=== PATIENT | male | born 1955 | race Caucasian/White ===

== ENCOUNTER 2016-09-16 18:58 | Emergency (ER) | payer MEDICAID ==
--- NOTE | 2016-09-16 18:54 | EDPHY ---
Medical Decision Making ED Course/Re-evaluation: CHIEF COMPLAINT: Alcohol intoxication. HISTORY OF PRESENT ILLNESS: The patient is a chronic alcoholic living on the [address]. Patient drinks on a daily basis and obtains whatever alcohol is available. Patient was found by bystanders who called EMS system. Patient has had multiple ER visits over the last several years for the same complaint. Patient denies any injuries denies loss of consciousness denies any recent trauma. Patient denies co-ingestion. Patient denies suicidal or homicidal behavior. REVIEW OF SYSTEMS: A 10 point review of systems was performed and is negative with the exception of the elements mentioned in the history of present illness. PHYSICAL EXAM: General Appearance: Alert, well hydrated, appropriate, and non-toxic appearing. Head: Atraumatic without scalp tenderness or obvious injury Eyes: Pupils equal, round, reactive to light and accommodation, EOMI, no trauma , no injection. Ears: Clear bilaterally, no perforation, normal landmarks Nose: Atraumatic, no rhinorrhea, clear. Throat: There is no erythema or exudates, no lesions, normal tonsils, mucus membranes moist. Neck: Supple, 2+ carotid upstroke, nontender, no lymphadenopathy. Respiratory: No retractions, no distress, no wheezes, and no accessory muscle use. Lungs are clear to auscultation bilaterally. Cardiovascular: Regular rate and rhythm, no murmurs, rubs, or gallops. Bilateral carotid, radial, dorsalis pedis, and posterior tibial pulses intact. Good capillary refill all extremities. Gastrointestinal: Abdomen is soft, nontender, non-distended, no masses, no rebound, no guarding, no peritoneal signs. Musculoskeletal: Normal active ROM of all extremities, atraumatic. Neurological: Alert, appropriate, and interactive. The patient has normal DTRs and non-focal cranial nerves, motor, sensory, and cerebellar exam. Skin: No rashes, good turgor, no nodules on palpation. SOCIAL HISTORY: Alcohol abuse. DIAGNOSTICS/PROCEDURES/CRITICAL CARE TIME: MEDICAL DECISION MAKING: I serially examined this patient since the patient's arrival here in the emergency department. The patient continues to become more and more sober with each examination. I serially questioned the patient and the patient's story given initially has not changed. The patient still denies any trauma, any head injury, and any illicit drug use. At this point, the patient is walking the department freely and is clinically sober. We're discharging the patient to the [facility] in stable condition. Departure - Departure Disposition: Home, Routine, Self-Care Clinical Impression: Alcohol abuse Condition: Good Instructions: Alcohol Intoxication (ED), Abuse of Alcohol (ED) Additional Instructions: Return for any serious worsening of condition. Referrals: [facility] 24 Hours [Outside] - As per Instructions
[2016-09-16 19:06] VITALS: RESP 16
[2016-09-16 19:59] VITALS: BP 124/62; PULSE 78; TEMP 99; O2SAT 94
== END 2016-09-16 20:06 | disposition home or self-care (01) ==
LOC: EDUNIT#
DX: F10.10 Alcohol abuse, uncomplicated (principal)

== ENCOUNTER 2016-09-17 20:18 | Emergency (ER) | payer MEDICAID ==
[2016-09-17] MEDS ORDERED: 1/2 NS 1,000 ML IV SCH (20:30)
[2016-09-17 20:31] LABS: % IMMATURE GRANULYOCYTES 0.3 % (0.0-1.1); ABSOLUTE IMMATURE GRANULOCYTES 0.04 10^3/uL (0.00-0.10); ADD DIFF? NO; ADD MORPH? NO; ADD SCAN? NO; ATYPICAL LYMPHOCYTE FLAG 20 (0-99); FRAGMENT RBC FLAG 0 (0-99); HEMATOCRIT 41.1 % (40.0-51.0); HEMOGLOBIN 13.7 g/dL (13.7-17.5); LEFT SHIFT FLG 0 (0-99); LIPEMIA HEMOLYSIS FLAG 80 (0-99); MEAN CELL HEMOGLOBIN 32.7 pg (27.9-34.1); MEAN CELL HEMOGLOBIN CONCENTR. 33.3 g/dL (32.4-36.7); MEAN CELL VOLUME 98.1 fL (81.5-99.8); MEAN PLATELET VOLUME 9.1 fL (8.7-11.7); PLATELET CLUMPS FLAG 10 (0-99); PLATELET COUNT 313 10^3/uL (150-400); RED BLOOD CELL COUNT 4.19 10^6/uL (4.40-6.38); RED CELL DISTRIBUTION WIDTH 16.6 % (11.5-15.2)
[2016-09-17 20:41] LABS: ANION GAP 20 mEq/L (8-16); CALCIUM 9.4 mg/dL (8.5-10.4); CARBON DIOXIDE 22 mEq/l (22-31); CHLORIDE 107 mEq/L (97-110); CREATININE 0.6 mg/dL (0.7-1.3); GLOMERULAR FILTRATION RATE > 60; GLUCOSE 76 mg/dL (70-100); POTASSIUM 4.6 mEq/L (3.5-5.2); SODIUM 149 mEq/L (134-144)
[2016-09-17] MEDS ORDERED: D5W 1/2 NS 1,000 ML IV SCH (20:45)
--- NOTE | 2016-09-17 22:40 | EDPHY ---
H & P Time Seen by Provider: 09/17/16 20:24 HPI/ROS: This patient is brought in by EMS for hypoglycemia intoxication. He has some by please behind a local muslim on the ground initially poorly responsive to verbal commands. His glucose prior to arrival was in the 40s and he was given oral glucose with a recheck of 76 prior to arrival. The patient is here with long history of alcohol abuse admits alcohol today. He have a minor fall and he does not recall the timing on this but he has a resultant abrasion to his nose and to his left knee both mild. He has no other complaints. ROS: No fevers. He denies any headache. No neck or back pain. No chest or belly pain. No recent vomiting. No bony pain in his knee. He does report left foot pain for the past 3 days. He does not recall if he injured it in a fall or earlier time points to the lateral foot as the source of the pain. 10 point ROS is limited due to intoxication but otherwise negative. Past Medical/Surgical History: Alcohol abuse Left hip fracture with surgery. He walks with a cane at baseline due to this He was admitted to the [facility] from [facility] yesterday. Social History: He drinks alcohol daily. He denies any coingestion. No drug use. Smoking Status: Current every day smoker Physical Exam: General Appearance: Alert, no distress. Eyes: Pupils equal and round no pallor or injection. ENT, Mouth: Mucous membranes moist. Atraumatic except for superficial abrasion to the tip of his nose without bony tenderness or deformity. Nares are clear bilaterally. Ears: Clear with no hemotympanum. Oropharynx no dental trauma or intraoral lacerations. Neck nontender Back nontender Respiratory: There are no retractions, lungs are clear to auscultation. Cardiovascular: Regular rate and rhythm. Gastrointestinal: Abdomen is soft and nontender, no masses, bowel sounds normal. Neurological: Patient has slurred speech consistent with intoxication but is oriented to person and place. No focal deficits. Has full strength in all 4 extremities. Skin: Warm and dry, no rashes. Extremities are symmetrical, full range of motion and atraumatic except for left foot Left foot: There is ecchymosis and mild tenderness to the lateral midfoot extends to the proximal 5th metatarsal. Psychiatric: Patient is cooperative while here. DIFFERENTIAL DIAGNOSIS: After history and physical exam differential diagnosis was considered for alcohol intoxication, foot sprain versus contusion versus fracture, superficial abrasions, alcohol related hyperglycemia Constitutional: Initial Vital Signs Temperature (C) 35.7 C L 09/17/16 20:18 Heart Rate 102 H 09/17/16 20:18 Respiratory Rate 21 H 09/17/16 20:18 Blood Pressure 116/73 09/17/16 20:18 O2 Sat (%) 88 L 09/17/16 20:18 O2 Delivery Mode Room Air Allergies/Adverse Reactions: No Known Allergies Allergy (Verified 09/17/16 20:22) Home Medications: Medication Instructions Recorded NK [No Known Home Meds] 09/16/16 MDM/Departure - MDM Diagnostics: Recheck glucose on arrival here is 80 Patient blows a 0.327 breathalyzer upon arrival here. Imaging Results: Imaging Impressions Foot X-Ray 09/17/16 22:34 Impression: 1. Nondisplaced fractures distal shaft left second through fourth metatarsals. The foot x-ray: 2nd through 4th distal metatarsal fractures. I discussed this with the radiologist-Dr. Roman Imaging: Discussed imaging studies w/ call center consultant Radiologist ED Course/Re-evaluation: D5 half-normal saline at maintenance Patient is placed in a walker boot for foot fracture. His abrasions are cleaned. I counseled him regarding foot fracture. Discussion: I find no evidence of other significant trauma this patient who despite his alcohol level is quite conversant. He has no other physical complaints at this time. He does have a minor nasal abrasion but no evidence of bony injury or significant head injury. He warrants observation admission for ortho or podiatry consult in the morning/ immobilization and sufficient sobriety ambulate - Depart Disposition: [facility] Clinical Impression: Multiple abrasions Alcohol intoxication Qualifiers: Complication of substance-induced condition: uncomplicated Qualified Code(s): F10.120 - Alcohol abuse with intoxication, uncomplicated Multiple closed fractures of metatarsal bone Qualifiers: Encounter type: initial encounter Laterality: left Qualified Code(s): S92.302A - Fracture of unspecified metatarsal bone(s), left foot, initial encounter for closed fracture Clinical Impression: (Ruled Out): Metatarsal bone fracture Condition: Good Referrals: NONE *PRIMARY CARE P,. [Primary Care Provider] - As per Instructions
[2016-09-17 23:51] VITALS: TEMP 97.9; O2SAT 94
--- NOTE | 2016-09-18 00:49 | EDPHY ---
H & P Time Seen by Provider: 09/17/16 20:24 HPI/ROS: CHIEF COMPLAINT: Foot fracture, intoxication, hypoglycemia HISTORY OF PRESENT ILLNESS: Patient is a 60-year-old alcoholic homeless man who is sent from [facility] for admission. He has fractures of the 2nd 3rd and 4th metatarsal bones in the left foot. He also complains of right-sided rib pain. He states that he fell a couple of days ago and has had pain in the left foot and right ribs ever since. He does not remember what happened and is not sure how he broke his foot. Today he was found passed out on the sidewalk by police and taken to [facility] for intoxication. They also found a low blood glucose of 40. He was given oral glucose in the ambulance and then D5 in the urgent care. He is now alert and talkative. REVIEW OF SYSTEMS: Constitutional: denies: chills, fever, recent illness, recent injury EENTM: denies: blurred vision, double vision, nose congestion Respiratory: denies: cough, shortness of breath Cardiac: denies: chest pain, irregular heart rate, lightheadedness, palpitations Gastrointestinal/Abdominal: denies: abdominal pain, diarrhea, nausea, vomiting, blood streaked stools Genitourinary: denies: dysuria, frequency, hematuria, pain Musculoskeletal: See HPI Skin: denies: lesions, rash, jaundice, bruising Neurological: denies: headache, numbness, paresthesia, tingling, dizziness, weakness Hematologic/Lymphatic: denies: blood clots, easy bleeding, easy bruising Immunologic/allergic: denies: HIV/AIDS, transplant EXAM: GENERAL: Disheveled no acute distress. HEAD: Small abrasion to left forehead, normocephalic. EYES: Pupils equal round and reactive to light, extraocular movements intact, sclera anicteric, conjunctiva are normal. ENT: TMs normal, nares patent, oropharynx clear without exudates. Moist mucous membranes. NECK: Normal range of motion, supple without lymphadenopathy or JVD. LUNGS: Breath sounds clear to auscultation bilaterally and equal. No significant tenderness with palpation of ribs HEART: Regular rate and rhythm without murmurs, rubs or gallops. ABDOMEN: Soft, nontender, normoactive bowel sounds. No guarding, no rebound. No masses appreciated. BACK: No CVA tenderness, no spinal tenderness, step-offs or deformities EXTREMITIES: Left foot in Andre ring, NEUROLOGICAL: Cranial nerves II through XII grossly intact. Normal speech, normal gait. 5/5 strength, normal movement in all extremities, normal sensation PSYCH: Normal mood, normal affect. SKIN: Warm, dry, normal turgor, no visible rashes or lesions. Source: Patient, EMS, Old records Exam Limitations: No limitations - Personal History Current Tetanus/Diphtheria Vaccine: Unsure Current Tetanus Diphtheria and Acellular Pertussis (TDAP): Unsure - Medical/Surgical History Hx Asthma: No Hx Chronic Respiratory Disease: No Hx Diabetes: No Hx Cardiac Disease: No Hx Renal Disease: No Hx Cirrhosis: No Hx Alcoholism: Yes Hx HIV/AIDS: No Hx Splenectomy or Spleen Trauma: No Other PMH: ETOH - Family History Significant Family History: No pertinent family hx - Social History Smoking Status: Current every day smoker Alcohol Use: Sober Drug Use: None Constitutional: Initial Vital Signs Temperature (C) 35.7 C L 09/17/16 20:18 Heart Rate 102 H 09/17/16 20:18 Respiratory Rate 21 H 09/17/16 20:18 Blood Pressure 116/73 09/17/16 20:18 O2 Sat (%) 88 L 09/17/16 20:18 O2 Delivery Mode Room Air Allergies/Adverse Reactions: No Known Allergies Allergy (Verified 09/17/16 20:22) Home Medications: Medication Instructions Recorded NK [No Known Home Meds] 09/16/16 Medical Decision Making - Diagnostics Imaging Results: Imaging Impressions Foot X-Ray 09/17/16 22:34 Impression: 1. Nondisplaced fractures distal shaft left second through fourth metatarsals. X-ray: chest x-ray was obtained. I viewed the images myself on the PACS system. My interpretation of the images is: negative for acute diseaseMultiple old fractures . The radiologist interpretation is pending. Imaging: I viewed and interpreted images myself ED Course/Re-evaluation: The patient is no longer significantly intoxicated. The patient may not require admission however if he does it is more appropriate as a trauma admission. Consulted Dr. Alejo. Also I have ordered a chest x-ray. Will also allow him to eat to treat his hypoglycemia if his chest x-ray is unremarkable. 1:30 a.m. the patient is sober needing a sandwich. His blood sugars been stable. Dr. Alejo has consulted. There is no operative management of his fractures. He is comfortable in ambulating in the Andre boot. This injury is several days old and he has been walking on it with a cane. This point the patient is safe for discharge. This has been discussed with Dr. Esquivel who agrees. He does have a home and we will give him a ride there. Patient is happy with this plan and declines further observation or admission. We'll Have him follow up with Orthopedics. Differential Diagnosis: Partial list of the Differential diagnosis considered include but were not limited to; foot fracture, rib fracture, intoxication, hypoglycemia and although unlikely based on the history and physical exam, I also considered head injury, neck injury, infection. I discussed these differential diagnoses and the plan with the patient as well as the usual and expected course. The patient understands that the diagnosis is provisional and that in medicine we are not always correct and that further workup is often warranted. Usual and customary warnings were given. All of the patient's questions were answered. The patient was instructed to return to the emergency department should the symptoms at all worsen or return, otherwise to followup with the physician as we discussed. - Data Points Laboratory Results: Laboratory Results 09/17/16 20:26 09/17/16 20:26 09/18/16 09/17/16 09/17/16 01:27 20:26 20:26 WBC 12.17 10^3/uL H 10^3/uL (3.80-9.50) RBC 4.19 10^6/uL L 10^6/uL (4.40-6.38) Hgb 13.7 g/dL g/dL (13.7-17.5) Hct 41.1 % % (40.0-51.0) MCV 98.1 fL fL (81.5-99.8) MCH 32.7 pg pg (27.9-34.1) MCHC 33.3 g/dL g/dL (32.4-36.7) RDW 16.6 % H % (11.5-15.2) Plt Count 313 10^3/uL 10^3/uL (150-400) MPV 9.1 fL fL (8.7-11.7) Neut % (Auto) 51.0 % % (39.3-74.2) Lymph % (Auto) 40.3 % % (15.0-45.0) Iron % (Auto) 6.7 % % (4.5-13.0) Eos % (Auto) 0.7 % % (0.6-7.6) Baso % (Auto) 1.0 % % (0.3-1.7) Nucleat RBC Rel Count 0.0 % % (0.0-0.2) Absolute Neuts (auto) 6.19 10^3/uL 10^3/uL (1.70-6.50) Absolute Lymphs (auto) 4.91 10^3/uL H 10^3/uL (1.00-3.00) Absolute Monos (auto) 0.82 10^3/uL H 10^3/uL (0.30-0.80) Absolute Eos (auto) 0.09 10^3/uL 10^3/uL (0.03-0.40) Absolute Basos (auto) 0.12 10^3/uL H 10^3/uL (0.02-0.10) Absolute Nucleated RBC 0.00 10^3/uL 10^3/uL (0-0.01) Immature Gran % 0.3 % % (0.0-1.1) Immature Gran # 0.04 10^3/uL 10^3/uL (0.00-0.10) Sodium 149 mEq/L H mEq/L (134-144) Potassium 4.6 mEq/L mEq/L (3.5-5.2) Chloride 107 mEq/L mEq/L (97-110) Carbon Dioxide 22 mEq/l mEq/l (22-31) Anion Gap 20 mEq/L H mEq/L (8-16) BUN 8 mg/dL mg/dL (7-23) Creatinine 0.6 mg/dL L mg/dL (0.7-1.3) Estimated GFR > 60 Glucose 76 mg/dL mg/dL (70-100) POC Glucose 115 mg/dL H mg/dL (70-100) Calcium 9.4 mg/dL mg/dL (8.5-10.4) 09/17/16 20:15 WBC RBC Hgb Hct MCV MCH MCHC RDW Plt Count MPV Neut % (Auto) Lymph % (Auto) Iron % (Auto) Eos % (Auto) Baso % (Auto) Nucleat RBC Rel Count Absolute Neuts (auto) Absolute Lymphs (auto) Absolute Monos (auto) Absolute Eos (auto) Absolute Basos (auto) Absolute Nucleated RBC Immature Gran % Immature Gran # Sodium Potassium Chloride Carbon Dioxide Anion Gap BUN Creatinine Estimated GFR Glucose POC Glucose 80 mg/dL mg/dL (70-100) Calcium Medications Given: Discontinued Medications Dextrose (Dextrose 50% Syringe) 25 gm IVP ONCE ONE Stop: 09/18/16 00:56 Last Admin: 09/18/16 00:55 Dose: 25 gm Dextrose/Sodium Chloride (D5w 1/2 Ns) 1,000 mls @ 0 mls/hr IV CONT BOSSMAN PRN Reason: Wide Open Stop: 03/16/17 20:44 Last Admin: 09/17/16 20:43 Dose: 1,000 mls Thiamine HCl (Vitamin B-1) 100 mg PO EDNOW ONE Stop: 09/18/16 02:01 Last Admin: 09/18/16 02:31 Dose: 100 mg Point of Care Test Results: 09/17/16 09/18/16 20:15 01:27 POC Glucose 80 115 H Departure - Departure Disposition: Home, Routine, Self-Care Clinical Impression: Multiple abrasions Alcohol intoxication Qualifiers: Complication of substance-induced condition: uncomplicated Qualified Code(s): F10.120 - Alcohol abuse with intoxication, uncomplicated Multiple closed fractures of metatarsal bone Qualifiers: Encounter type: initial encounter Laterality: left Qualified Code(s): S92.302A - Fracture of unspecified metatarsal bone(s), left foot, initial encounter for closed fracture Condition: Fair Instructions: Foot Fracture in Adults (ED), Alcohol Intoxication (ED) Referrals: Jostin Sorto MD [Medical Doctor] - As per Instructions
[2016-09-18] MEDS ORDERED: D50W 25 GM/50 ML SYR IVP ONE ×2 (00:52→00:55)
[2016-09-18 01:53] VITALS: BP 139/74; PULSE 81; RESP 16
[2016-09-18] MEDS ORDERED: THIAMINE HCL 100 MG TAB PO ONE (02:00)
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
== END 2016-09-18 02:30 | disposition home or self-care (01) ==
LOC: CED 20:18 → UNDOADMOB 23:26 → CEDHOLD 23:26 → CED 09-18 02:30
DX: S92.325A Nondisplaced fracture of second metatarsal bone, left foot, initial encounter for closed fracture (principal); S92.335A Nondisplaced fracture of third metatarsal bone, left foot, initial encounter for closed fracture; S92.345A Nondisplaced fracture of fourth metatarsal bone, left foot, initial encounter for closed fracture; S00.81XA Abrasion of other part of head, initial encounter; F17.200 Nicotine dependence, unspecified, uncomplicated; F10.120 Alcohol abuse with intoxication, uncomplicated; W19.XXXA Unspecified fall, initial encounter; Y92.480 Sidewalk as the place of occurrence of the external cause
CPT/HCPCS: 73620-PO; 80048-PO; 82947-QW; 85025-PO; 96374; L4386

== ENCOUNTER 2016-09-24 01:34 | Emergency (ER) | payer MEDICAID ==
[2016-09-24] MEDS ORDERED: ONDANSETRON 4 MG/2 ML VIAL IVP ONE (01:45)
[2016-09-24] MEDS ORDERED: NS 1,000 ML IV ONE (01:45)
--- NOTE | 2016-09-24 01:50 | EDPHY ---
H & P Time Seen by Provider: 09/24/16 01:40 HPI/ROS: CHIEF COMPLAINT: found down, on the street, facial abrasions. HISTORY OF PRESENT ILLNESS: patient is clinically intoxicated is unable to give me any information at this time. Per the EMS they were called by a 3rd democrat as he was found down. He is found dressed appropriately for the elements , however he was on the pavement without any blanket. He had abrasions on the face and was able to move both arms legs equally well. Was able to give him orientation to day in year and person. They found him to be smelling strongly of alcohol. C collar placed. The patient cannot recollect that he was on the ground. He surmises that he had a bit of a fall but does not report any prodrome before the fall such as chest pain or palpitations or seizure. When reviewing old charts he did have an episode of collapse on a local bus in the remote past, however, he states he was never told he had had seizures. Further, he notes that he has been able to continue to drink and is not having any element of withdrawal. He does however not complain of his facial abrasions but in fact his back. He reported to be low back when asked if upper lower, but is unable to localize it for me when I asked. No other c/o. See here about 7 days ago for MT fx's to the left foot. Charts reviewed. REVIEW OF SYSTEMS: Performed though of questionable reliability due to his intoxication Constitutional: No fever, no chills. Eyes: No discharge ENT: No sore throat, or change in voice. Cardiovascular: No chest pain, no palpitations. Respiratory: No shortness of breath, or wheezing. Gastrointestinal: No nausea vomiting or diarrhea. No abdominal pain. Genitourinary: No hematuria or frequency. Musculoskeletal: No back pain. Skin: No rashes. Neurological: No headache. 10 point ROS otherwise negative Source: Patient, EMS Exam Limitations: Intoxication - Personal History Current Tetanus/Diphtheria Vaccine: Unsure Current Tetanus Diphtheria and Acellular Pertussis (TDAP): Unsure - Medical/Surgical History Hx Asthma: No Hx Chronic Respiratory Disease: No Hx Diabetes: No Hx Cardiac Disease: No Hx Renal Disease: No Hx Cirrhosis: No Hx Alcoholism: Yes Hx HIV/AIDS: No Hx Splenectomy or Spleen Trauma: No Other PMH: ETOH - Family History Significant Family History: No pertinent family hx - Social History Smoking Status: Current every day smoker Alcohol Use: Heavy Drug Use: None - Physical Exam Exam: General Appearance: Awake, smells strongly of alcohol, with abrasions on his forehead as noted below, but not diaphoretic. Feels cold to the touch. Normal phonation, though difficult to understand as he is edentulous, upper row. No respiratory distress. GCS = 15 Eyes: Pupils equal and round, and small. No pallor or injection. No icterus ENT, Mouth: Mucous membranes dry. Pharynx without erythema or exudate. TM Clear. There is abrasion over the very top of the bridge of the nose. Split- thickness. There is also abrasions present to the midportion of the forehead as well as the scalp on the right side of the forehead. Neck: No adenopathy. No step off. No JVD. Trachea in midline. Respiratory: There are no retractions, lungs are clear to auscultation. No crepitus or subcutaneous emphysema Cardiovascular: Regular rate and rhythm, without murmur Abdomen: Soft and nontender, no masses, bowel sounds normal. Femoral pulses equal. There is a rash present on the right abdomen compatible with contact dermatitis from a belt buckle. Nontender. Back: when asked where his back pain is he states lower, but unable to follow instructions when asked to point out where the back hurts and likewise unable to guide my hands accordingly. Neurological: Ox3. No motor weakness. Sensation intact. Skin: Warm and dry, no rashes - however hands and feet are quite cold and he feels overall chilled. Musculoskeletal: No joint swelling. Extremities: No edema. Psychiatric: Normal affect. 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 Constitutional: Initial Vital Signs Temperature (C) 35.1 C L 09/24/16 02:05 Heart Rate 79 09/24/16 02:05 Respiratory Rate 12 09/24/16 02:05 Blood Pressure 151/86 H 09/24/16 02:05 O2 Sat (%) 91 L 09/24/16 02:05 O2 Delivery Mode Room Air O2 (L/minute) 2 Allergies/Adverse Reactions: No Known Allergies Allergy (Verified 09/24/16 02:40) Home Medications: Medication Instructions Recorded NK [No Known Home Meds] 09/16/16 Medical Decision Making - Diagnostics EKG Interpretation: EKG: With right bundle branch block Interpreted by me contemporaneously. Normal sinus rhythm. With right bundle branch block. Borderline cues in 2 3 and F Heart rate [ 78 ]. QTc 489 STT segment: No ischemic changes T Waves: Normal Summary: Right bundle branch block with slightly prolonged QT interval. Probable old inferior infarct. No old EKGs available for comparison Imaging Results: CT scan as interpreted by the radiologist and discussed with radiologist and reviewed by me: CT of the head shows a right frontal scalp hematoma with moderate atrophy advanced for age. No acute injury CT of the neck shows multilevel degenerative changes including C6-7 disc herniation. Furthermore there is extensive carotid artery disease in a carotid artery ultrasound is recommended in follow-up CT scan of the thorax showed multiple prior rib fractures bilaterally as well as multiple prior thoracic spine fractures of 679 and 11 as well as L2. Furthermore there is a mild ground-glass appearance in the right upper chest which will need follow-up in 3 months time. There is a 4 mm nodule also noted. No acute changes. CT scan of the abdomen showed extensive atherosclerosis as well as aortic sclerosis, but no solid or hollow organ injury. He is status post left hip repair, as well as left pubic ramus fracture Imaging: Discussed imaging studies w/ call or contact centre team leader Radiologist ED Course/Re-evaluation: Patient appeared heavily, politely intoxicated upon arrival smelling strongly of alcohol. Due to his initially state his voice was somewhat hard to understand but it was evident that he was oriented to person and place. He felt particularly cold in the hands and feet though there is no signs of frostbite. Rectal temperature was quite low thus Tasia Hugger and warm blankets were initiated. This included warmed IV fluids. Initial rectal temperature was 33.1. Old charts were reviewed any had a presentation here with alcohol intoxication, documented by way of Breathalyzer, and foot injury with a creatinine of 0.6 within the last 2 weeks. As he was unreliable, unable to walk well, and intoxicated he was sent to [facility] for evaluation ultimately released. Given a L of warmed IV saline for reheating in the face of hypothermia, as well as volume depletion as he showed evidence of dehydration with dry mucous membranes. Overtime had improving sensorium. His alcohol level is markedly elevated approximately 380. As this metabolize he became more alert and is conversant. He was quite appropriate, both apologetic and appreciative of our interactions. Further laboratory studies were as follows: Mild hypernatremia which is improved over time. Moderately elevated anion gap which improved with repeat lab draw after being warmed and saline. Core temperature slowly came up with aggressive maneuvers of both warmed saline infusion as well as Tasia Hugger. He was thereafter able to maintain such. Was able to eat and retained food well as well as orally hydrate. He is able to ambulate in a steady fashion despite his fracture of the foot from last week. He was clinically sober at discharge and we reviewed the findings of the above x-ray studies Differential Diagnosis: Differential diagnosis includes but is not limited to Intracranial: subdural hematoma, epidural hematoma, peripheral contusion, concussion. Cervical spine: Fracture spine, dislocation spine, muscle strain Thorax: Rib fracture, hemothorax, pneumothorax, tension pneumothorax, aortic dissection, spine fracture. Spine: Thoracic and lumbar sacral spine fracture or dislocation Abdominal/pelvis: Splenic injury or hematoma or laceration, liver laceration or hematoma. Contusion of duodenum, renal contusion, hollow viscus injury, pelvic fracture, intra-abdominal bleeding. Altered Mental Status: Meningitis, new onset seizure disorder, encephalitis, intracranial hemorrhage, drug intoxication, drug mishap, vasculitis, alcohol intoxication. - Data Points Laboratory Results: Laboratory Results 09/24/16 02:10 09/24/16 04:34 09/24/16 09/24/16 09/24/16 05:30 04:34 02:10 WBC RBC Hgb Hct MCV MCH MCHC RDW Plt Count MPV Neut % (Auto) Lymph % (Auto) [place] % (Auto) Eos % (Auto) Baso % (Auto) Nucleat RBC Rel Count Absolute Neuts (auto) Absolute Lymphs (auto) Absolute Monos (auto) Absolute Eos (auto) Absolute Basos (auto) Absolute Nucleated RBC Immature Gran % Immature Gran # PT INR APTT Sodium 146 mEq/L H mEq/L (134-144) Potassium 3.5 mEq/L mEq/L (3.5-5.2) Chloride 110 mEq/L mEq/L (97-110) Carbon Dioxide 20 mEq/l L mEq/l (22-31) Anion Gap 16 mEq/L mEq/L (8-16) BUN 15 mg/dL mg/dL (7-23) Creatinine 0.8 mg/dL mg/dL (0.7-1.3) Estimated GFR > 60 Glucose 69 mg/dL L mg/dL (70-100) Calcium 7.6 mg/dL L D mg/dL (8.5-10.4) Creatine Kinase 109 IU/L IU/L (0-224) Urine Color YELLOW Urine Appearance CLEAR Urine pH 5.0 (5.0-7.5) Ur Specific [place] 1.010 (1.002-1.030) Urine Protein TRACE H (NEGATIVE) Urine Ketones NEGATIVE (NEGATIVE) Urine Blood NEGATIVE (NEGATIVE) Urine Nitrate NEGATIVE (NEGATIVE) Urine Bilirubin NEGATIVE (NEGATIVE) Urine Urobilinogen 0.2 EU EU (0.2-1.0) Ur Leukocyte Esterase NEGATIVE (NEGATIVE) Urine RBC NONE SEEN /hpf /hpf (0-3) Urine WBC 1-3 /hpf /hpf (0-3) Ur Epithelial Cells 1+ /lpf /lpf (NONE-1+) Hyaline Casts 50-182 /lpf H /lpf (0-1) Urine Mucus 2+ /lpf H /lpf (NONE-1+) Urine Glucose NEGATIVE (NEGATIVE) Urine Opiates Screen NEGATIVE (NEGATIVE) Urine Barbiturates NEGATIVE (NEGATIVE) Ur Phencyclidine Scrn NEGATIVE (NEGATIVE) Ur Amphetamine Screen NEGATIVE (NEGATIVE) U Benzodiazepines Scrn NEGATIVE (NEGATIVE) Urine Cocaine Screen NEGATIVE (NEGATIVE) U Marijuana (THC) Screen NEGATIVE (NEGATIVE) Ethyl Alcohol 09/24/16 09/24/16 09/24/16 02:10 02:10 02:10 WBC 8.54 10^3/uL 10^3/uL (3.80-9.50) RBC 4.35 10^6/uL L 10^6/uL (4.40-6.38) Hgb 14.3 g/dL g/dL (13.7-17.5) Hct 43.2 % % (40.0-51.0) MCV 99.3 fL fL (81.5-99.8) MCH 32.9 pg pg (27.9-34.1) MCHC 33.1 g/dL g/dL (32.4-36.7) RDW 15.8 % H % (11.5-15.2) Plt Count 248 10^3/uL 10^3/uL (150-400) MPV 9.5 fL fL (8.7-11.7) Neut % (Auto) 57.7 % % (39.3-74.2) Lymph % (Auto) 33.3 % % (15.0-45.0) [place] % (Auto) 5.7 % % (4.5-13.0) Eos % (Auto) 2.1 % % (0.6-7.6) Baso % (Auto) 0.6 % % (0.3-1.7) Nucleat RBC Rel Count 0.0 % % (0.0-0.2) Absolute Neuts (auto) 4.93 10^3/uL 10^3/uL (1.70-6.50) Absolute Lymphs (auto) 2.84 10^3/uL 10^3/uL (1.00-3.00) Absolute Monos (auto) 0.49 10^3/uL 10^3/uL (0.30-0.80) Absolute Eos (auto) 0.18 10^3/uL 10^3/uL (0.03-0.40) Absolute Basos (auto) 0.05 10^3/uL 10^3/uL (0.02-0.10) Absolute Nucleated RBC 0.00 10^3/uL 10^3/uL (0-0.01) Immature Gran % 0.6 % % (0.0-1.1) Immature Gran # 0.05 10^3/uL 10^3/uL (0.00-0.10) PT 11.9 SEC L SEC (12.0-15.0) INR 0.90 (0.83-1.16) APTT 28.2 SEC SEC (23.0-38.0) Sodium 148 mEq/L H mEq/L (134-144) Potassium 4.0 mEq/L mEq/L (3.5-5.2) Chloride 105 mEq/L mEq/L (97-110) Carbon Dioxide 21 mEq/l L mEq/l (22-31) Anion Gap 22 mEq/L H mEq/L (8-16) BUN 18 mg/dL mg/dL (7-23) Creatinine 1.1 mg/dL mg/dL (0.7-1.3) Estimated GFR > 60 Glucose 83 mg/dL mg/dL (70-100) Calcium 9.1 mg/dL mg/dL (8.5-10.4) Creatine Kinase Urine Color Urine Appearance Urine pH Ur Specific [place] Urine Protein Urine Ketones Urine Blood Urine Nitrate Urine Bilirubin Urine Urobilinogen Ur Leukocyte Esterase Urine RBC Urine WBC Ur Epithelial Cells Hyaline Casts Urine Mucus Urine Glucose Urine Opiates Screen Urine Barbiturates Ur Phencyclidine Scrn Ur Amphetamine Screen U Benzodiazepines Scrn Urine Cocaine Screen U Marijuana (THC) Screen Ethyl Alcohol 384 mg/dL H mg/dL (0-10) Medications Given: Discontinued Medications Diphtheria/Tetanus/Acell Pertussis (Boostrix) 0.5 ml IM .ONCE ONE Stop: 09/24/16 05:38 Last Admin: 09/24/16 05:53 Dose: 0.5 ml Sodium Chloride (Ns) 1,000 mls @ 0 mls/hr IV ONCE ONE PRN Reason: Wide [place] Stop: 09/24/16 01:46 Last Admin: 09/24/16 01:55 Dose: 1,000 mls Ondansetron HCl (Zofran) 4 mg IVP EDNOW ONE Stop: 09/24/16 01:46 Last Admin: 09/24/16 01:55 Dose: 4 mg Departure - Departure Disposition: Home, Routine, Self-Care Clinical Impression: Head injury due to trauma Qualifiers: Encounter type: initial encounter Qualified Code(s): S09.90XA - Unspecified injury of head, initial encounter Abrasion of face Qualifiers: Encounter type: initial encounter Qualified Code(s): S00.81XA - Abrasion of other part of head, initial encounter Abrasion of nose Qualifiers: Encounter type: initial encounter Qualified Code(s): S00.31XA - Abrasion of nose, initial encounter Hypothermia Qualifiers: Encounter type: initial encounter Qualified Code(s): T68.XXXA - Hypothermia, initial encounter Back strain Qualifiers: Encounter type: initial encounter Qualified Code(s): S39.012A - Strain of muscle, fascia and tendon of lower back, initial encounter Alcohol intoxication in active alcoholic Qualifiers: Complication of substance-induced condition: uncomplicated Qualified Code(s): F10.220 - Alcohol dependence with intoxication, uncomplicated Condition: Fair Additional Instructions: Really, you need to stop drinking. It will be the of you. You almost did not make it through the night, except for the fact that the [employer] found. Your temperature was as low as 91 when you arrived. You could have been by morning. Consider going to a local rehab facility such as [facility] or the alcohol rehabilitation center. While no acute injuries were noted under CT scans the following issues need to be addressed and followed up with her regular family physician: 1-extensive carotid disease. 2-changes on the right upper lobe that need a repeat x-ray in 3 months - you need to arrange this with your doctor. For your abrasions, clean daily with mild soap and water and apply antibiotic ointment. Where a baseball cap. Once there healed you should avoid [place] for the next 4 months. Sunscreen would help to prevent any burning to the skin that is trying to heal. Referrals: Patient,NotPresent [Primary Care Provider] - As per Instructions
[2016-09-24 02:27] LABS: % IMMATURE GRANULYOCYTES 0.6 % (0.0-1.1); ABSOLUTE IMMATURE GRANULOCYTES 0.05 10^3/uL (0.00-0.10); ADD DIFF? NO; ADD MORPH? NO; ADD SCAN? NO; ATYPICAL LYMPHOCYTE FLAG 40 (0-99); FRAGMENT RBC FLAG 0 (0-99); HEMATOCRIT 43.2 % (40.0-51.0); HEMOGLOBIN 14.3 g/dL (13.7-17.5); LEFT SHIFT FLG 0 (0-99); LIPEMIA HEMOLYSIS FLAG 80 (0-99); MEAN CELL HEMOGLOBIN 32.9 pg (27.9-34.1); MEAN CELL HEMOGLOBIN CONCENTR. 33.1 g/dL (32.4-36.7); MEAN CELL VOLUME 99.3 fL (81.5-99.8); MEAN PLATELET VOLUME 9.5 fL (8.7-11.7); PLATELET CLUMPS FLAG 10 (0-99); PLATELET COUNT 248 10^3/uL (150-400); RED BLOOD CELL COUNT 4.35 10^6/uL (4.40-6.38); RED CELL DISTRIBUTION WIDTH 15.8 % (11.5-15.2)
--- NOTE | 2016-09-24 02:38 | CPEKG ---
Heart Rate: 78 RR Interval: 769 P-R Interval: 144 QRSD Interval: 140 QT Interval: 448 QTC Interval: 511 P [place]: 25 QRS [place]: 23 T Wave [place]: 22 EKG Severity - ABNORMAL ECG - EKG Impression: SINUS RHYTHM EKG Impression: IVCD, CONSIDER ATYPICAL RBBB EKG Impression: PROBABLE INFERIOR INFARCT, AGE INDETERMINATE Electronically Signed By: Blair Perez 24-Sep-2016 06:14:10
[2016-09-24 02:39] LABS: ANION GAP 22 mEq/L (8-16); CALCIUM 9.1 mg/dL (8.5-10.4); CARBON DIOXIDE 21 mEq/l (22-31); CHLORIDE 105 mEq/L (97-110); CREATININE 1.1 mg/dL (0.7-1.3); GLOMERULAR FILTRATION RATE > 60; GLUCOSE 83 mg/dL (70-100); SODIUM 148 mEq/L (134-144)
[2016-09-24] MEDS ORDERED: IOPAMIDOL (ISOVUE-300) 100 ML BTL IV ONE (02:46)
[2016-09-24 02:47] LABS: INR 0.9 (0.83-1.16); PROTIME(PATIENT) 11.9 SEC (12.0-15.0)
[2016-09-24 02:48] LABS: APTT 28.2 SEC (23.0-38.0)
[2016-09-24 03:45] LABS: ETHANOL SERUM 384 mg/dL (0-10)
[2016-09-24 04:53] LABS: ANION GAP 16 mEq/L (8-16); CALCIUM 7.6 mg/dL (8.5-10.4); CARBON DIOXIDE 20 mEq/l (22-31); CHLORIDE 110 mEq/L (97-110); CREATININE 0.8 mg/dL (0.7-1.3); GLOMERULAR FILTRATION RATE > 60; GLUCOSE 69 mg/dL (70-100); POTASSIUM 3.5 mEq/L (3.5-5.2); SODIUM 146 mEq/L (134-144)
[2016-09-24 05:34] VITALS: TEMP 97.9; O2SAT 90
[2016-09-24 05:35] LABS: COLOR YELLOW; LEUKOCYTE ESTERASE,URINE NEGATIVE (NEGATIVE); NITRITE,URINE NEGATIVE (NEGATIVE)
[2016-09-24] MEDS ORDERED: TDAP ADULT 0.5 ML INJ (BOOSTRIX) IM ONE (05:37)
[2016-09-24 05:49] LABS: HYALINE CASTS 50-182 /lpf (0-1); MUCUS 2+ /lpf (NONE-1+)
[2016-09-24 05:53] LABS: RBC,URINE NONE SEEN /hpf (0-3)
[2016-09-24 06:36] VITALS: BP 124/61; PULSE 92; RESP 12
== END 2016-09-24 06:27 | disposition home or self-care (01) ==
LOC: CED 01:34
DX: S00.81XA Abrasion of other part of head, initial encounter (principal); S09.90XA Unspecified injury of head, initial encounter; S00.31XA Abrasion of nose, initial encounter; T68.XXXA Hypothermia, initial encounter; S39.012A Strain of muscle, fascia and tendon of lower back, initial encounter; F10.220 Alcohol dependence with intoxication, uncomplicated; F17.200 Nicotine dependence, unspecified, uncomplicated; Z23 Encounter for immunization; W19.XXXA Unspecified fall, initial encounter; X31.XXXA Exposure to excessive natural cold, initial encounter; Y92.488 Other paved roadways as the place of occurrence of the external cause
CPT/HCPCS: 70450-PO; 71010-PO; 71260-PO; 72125-PO; 74177-PO; 80048-PO; 80307-PO; 81003-PO; 81015-PO; 82550-PO; 85025-PO; 85610-PO; 85730-PO; 96374; G0480; J2405; Q9967

== ENCOUNTER 2016-10-03 00:01 | Emergency (ER) | payer MEDICAID ==
--- NOTE | 2016-10-03 00:10 | EDPHY ---
H & P HPI/ROS: 60 y/o male with frequent visits related to ETOH abuse brought by EMS after a third libertarian called police to report an intoxicated male sleeping behind [employer] grocery store. Reportedly drank a pint of vodka today. It had been raining and the patient is cold and wet. No trauma. History of chronic back pain and a recent foot fracture (approximately 3 weeks ago). Noncompliant with walker boot given on previous visit. ROS: back pain, cough, left foot pain Past Medical/Surgical History: PMH per review of prior records: emphysema, gallstones, probable chronic pancreatitis, atherosclerosis, extensive carotid artery calcifications, PA, HTN , distal esophageal wall thickening, multiple rib fractures, multiple compression fractures, recent fracture of 2nd-4th distal metatarsals left foot ( noncompliant with walker boot). PSH per review of prior records: includes bilateral knee repair, left hip fracture repair, right elbow surgery, nasal bone fractures with nasal septum repair, tonsillectomy Social History: Homeless; tobacco and alcohol abuse. Smoking Status: Current every day smoker (at least 1/2 ppd since age 21) Physical Exam: General Appearance: Alert, no distress. Head: Normal cephalic, atraumatic. Eyes: Pupils equal and round no pallor or injection. ENT, Mouth: Mucous membranes moist. edentulous. Old superficial abrasion to nose. No hemotympanum. Respiratory: There are no retractions, lungs are clear to auscultation. Distant breath sounds. Cardiovascular: Regular rate and rhythm. Pulses intact all four extremities. Gastrointestinal: Abdomen is soft and mild epigastric TTP, no masses, bowel sounds normal. Neurological: non focal, speaking clearly; no lateralizing neurologic findings. Skin: Cool. Scattered old abrasions. Musculoskeletal: Neck is supple nontender. Back kyphotic/scoliotic. No palpable abnormalities. Extremities are symmetrical, full range of motion. Dorsum of left foot TTP. Psychiatric: Patient is oriented X 3, there is no agitation. DIFFERENTIAL DIAGNOSIS: After history and physical exam differential diagnosis was considered for ETOH intoxication, pancreatitis, gastritis Constitutional: Initial Vital Signs Temperature (C) 94.6 F L 10/03/16 00:09 Heart Rate 82 10/03/16 00:09 Respiratory Rate 18 10/03/16 00:09 Blood Pressure 105/84 H 10/03/16 00:09 O2 Sat (%) 94 05/17/17 00:09 O2 Delivery Mode Room Air O2 (L/minute) 2 Allergies/Adverse Reactions: No Known Allergies Allergy (Verified 09/24/16 02:40) Home Medications: Medication Instructions Recorded NK [No Known Home Meds] 09/16/16 Medical Decision Making - Diagnostics Imaging: I viewed and interpreted images myself (PCXR without acute findings) ED Course/Re-evaluation: 60 y/o male with acute ETOH intoxication in the setting of chronic alcohol abuse and homelessness brought in by EMS when found sleeping behind a grocery store. He was mildly hypothermic upon arrival but this corrected quickly with the warming blanket. ETOH by breathalyzer was 309. CBC with slightly elevated WBC. Chemistry significant for mild hypokalemia and hypomagnesemia. Lipase and AST, ALT wnl. He received KCL 40 meEq and magnesium oxide 400mg po in the ER. CXR without acute finding. He was fed. He will be discharged when clinically sober. - Data Points Laboratory Results: Laboratory Results 10/03/16 00:25 10/03/16 00:25 10/03/16 10/03/16 00:25 00:25 WBC 11.08 10^3/uL H 10^3/uL (3.80-9.50) RBC 4.26 10^6/uL L 10^6/uL (4.40-6.38) Hgb 14.0 g/dL g/dL (13.7-17.5) Hct 41.1 % % (40.0-51.0) MCV 96.5 fL fL (81.5-99.8) MCH 32.9 pg pg (27.9-34.1) MCHC 34.1 g/dL g/dL (32.4-36.7) RDW 15.6 % H % (11.5-15.2) Plt Count 235 10^3/uL 10^3/uL (150-400) MPV 9.3 fL fL (8.7-11.7) Neut % (Auto) 57.9 % % (39.3-74.2) Lymph % (Auto) 34.1 % % (15.0-45.0) [place] % (Auto) 5.2 % % (4.5-13.0) Eos % (Auto) 1.5 % % (0.6-7.6) Baso % (Auto) 0.7 % % (0.3-1.7) Nucleat RBC Rel Count 0.0 % % (0.0-0.2) Absolute Neuts (auto) 6.38 10^3/uL 10^3/uL (1.70-6.50) Absolute Lymphs (auto) 3.76 10^3/uL H 10^3/uL (1.00-3.00) Absolute Monos (auto) 0.57 10^3/uL 10^3/uL (0.30-0.80) Absolute Eos (auto) 0.17 10^3/uL 10^3/uL (0.03-0.40) Absolute Basos (auto) 0.08 10^3/uL 10^3/uL (0.02-0.10) Absolute Nucleated RBC 0.00 10^3/uL 10^3/uL (0-0.01) Immature Gran % 0.6 % % (0.0-1.1) Immature Gran # 0.07 10^3/uL 10^3/uL (0.00-0.10) Sodium 144 mEq/L mEq/L (134-144) Potassium 3.3 mEq/L L mEq/L (3.5-5.2) Chloride 102 mEq/L mEq/L (97-110) Carbon Dioxide 21 mEq/l L mEq/l (22-31) Anion Gap 21 mEq/L H mEq/L (8-16) BUN 9 mg/dL mg/dL (7-23) Creatinine 0.6 mg/dL L mg/dL (0.7-1.3) Estimated GFR > 60 Glucose 69 mg/dL L mg/dL (70-100) Calcium 8.4 mg/dL L mg/dL (8.5-10.4) Magnesium 1.5 mg/dL L mg/dL (1.6-2.3) Total Bilirubin 0.6 mg/dL mg/dL (0.1-1.4) Conjugated Bilirubin 0.5 mg/dL mg/dL (0.0-0.5) Unconjugated Bilirubin 0.1 mg/dL mg/dL (0.0-1.1) AST 39 IU/L IU/L (17-59) ALT 21 IU/L IU/L (21-72) Alkaline Phosphatase 145 IU/L H IU/L (38-126) Total Protein 7.6 g/dL g/dL (6.3-8.2) Albumin 3.7 g/dL g/dL (3.5-5.0) Lipase 60.0 IU/L IU/L (23-300) Medications Given: Discontinued Medications Acetaminophen (Tylenol) 650 mg PO EDNOW ONE Stop: 10/03/16 00:30 Last Admin: 10/03/16 00:31 Dose: 650 mg Departure - Departure Disposition: Home, Routine, Self-Care Clinical Impression: Acute alcohol intoxication in patient with alcoholism with blood alcohol level over 0.3, Alcohol dependence Clinical Impression: (Ruled Out): Acute alcohol intoxication in patient with alcoholism with blood alcohol level 0.08 to 0.29 Condition: Good Instructions: Hypokalemia (ED), Abuse of Alcohol (ED), Hypomagnesemia (ED) Additional Instructions: Certain studies on your prior visit were abnormal. You should establish care with a primary care provider and have a repeat Chest CT in 3 months to evaluate abnormality in the right upper lobe; you should have a carotid doppler duplex sonography (ultrasound of the arteries in your neck) because there was a lot of calcification seen on CT, and an upper endoscopy to look at your esophagus as the esophageal wall thickening. Referrals: Jostin Sorto MD [Medical Doctor] - As per Instructions (You were referred to Dr. Sorto for your prior foot injury. You should follow up with Dr. Sorto if you have not done so already.) Tamra Manley MD [Medical Doctor] - As per Instructions (You need to establish care with a primary care provider for follow up within the next 3 months.)
[2016-10-03] MEDS ORDERED: ACETAMINOPHEN 325 MG TAB ONE (00:26)
[2016-10-03 00:29] LABS: HEMATOCRIT 41.1 % (40.0-51.0); LIPEMIA HEMOLYSIS FLAG 90 (0-99); MEAN CELL HEMOGLOBIN 32.9 pg (27.9-34.1); MEAN CELL HEMOGLOBIN CONCENTR. 34.1 g/dL (32.4-36.7); MEAN CELL VOLUME 96.5 fL (81.5-99.8); PLATELET CLUMPS FLAG 0 (0-99); PLATELET COUNT 235 10^3/uL (150-400); RED BLOOD CELL COUNT 4.26 10^6/uL (4.40-6.38); RED CELL DISTRIBUTION WIDTH 15.6 % (11.5-15.2)
[2016-10-03] MEDS ORDERED: ACETAMINOPHEN 325 MG TAB PO ONE (00:29)
[2016-10-03 00:39] LABS: SODIUM 144 mEq/L (134-144)
[2016-10-03 00:40] VITALS: O2SAT 96
[2016-10-03 00:53] LABS: ALANINE AMINOTRANSFERASE 21 IU/L (21-72); ALBUMIN 3.7 g/dL (3.5-5.0); ALKALINE PHOSPHATASE 145 IU/L (38-126); ANION GAP 21 mEq/L (8-16); ASPARTATE AMINOTRANSFERASE 39 IU/L (17-59); BILIRUBIN,TOTAL 0.6 mg/dL (0.1-1.4); BILIRUBIN-CONJUGATED 0.5 mg/dL (0.0-0.5); BILIRUBIN-UNCONJUGATED 0.1 mg/dL (0.0-1.1); CALCIUM 8.4 mg/dL (8.5-10.4); CARBON DIOXIDE 21 mEq/l (22-31); CHLORIDE 102 mEq/L (97-110); CREATININE 0.6 mg/dL (0.7-1.3); GLOMERULAR FILTRATION RATE > 60; GLUCOSE 69 mg/dL (70-100); MAGNESIUM 1.5 mg/dL (1.6-2.3); POTASSIUM 3.3 mEq/L (3.5-5.2); TOTAL PROTEIN 7.6 g/dL (6.3-8.2)
[2016-10-03 01:19] LABS: % IMMATURE GRANULYOCYTES 0.6 % (0.0-1.1); ABSOLUTE IMMATURE GRANULOCYTES 0.07 10^3/uL (0.00-0.10); ADD DIFF? NO; ADD SCAN? NO; ATYPICAL LYMPHOCYTE FLAG 0 (0-99); LEFT SHIFT FLG 0 (0-99); MEAN PLATELET VOLUME 9.3 fL (8.7-11.7)
[2016-10-03 01:20] LABS: ADD MORPH? NO
[2016-10-03] MEDS ORDERED: POTASSIUM CL 20 MEQ TAB PO ONE (01:24)
[2016-10-03] MEDS ORDERED: MAGNESIUM OXIDE 400 MG TAB PO ONE (01:25)
[2016-10-03] MEDS ORDERED: POTASSIUM CL 20 MEQ TAB ONE (04:12)
[2016-10-03 06:15] VITALS: BP 113/75; PULSE 96; RESP 18; TEMP 97.9
== END 2016-10-03 06:16 | disposition home or self-care (01) ==
LOC: CED 00:01
DX: F10.229 Alcohol dependence with intoxication, unspecified (principal); Y90.0 Blood alcohol level of less than 20 mg/100 ml; F17.200 Nicotine dependence, unspecified, uncomplicated; I10 Essential (primary) hypertension; I25.2 Old myocardial infarction
CPT/HCPCS: 71010-PO; 80048-PO; 80076-PO; 83690-PO; 83735-PO; 85025-PO; 85027-PO

== ENCOUNTER 2016-10-08 19:36 | Emergency (ER) | payer MEDICAID ==
[2016-10-08 19:55] VITALS: TEMP 98.2
[2016-10-08] MEDS ORDERED: LORazepam 1 MG TAB PO ONE (20:12)
[2016-10-08] MEDS ORDERED: CHLORDIAZEPOXIDE 25MG PREPK#6 BTL TAKEHOME ONE ×2 (20:14→20:47)
[2016-10-08] MEDS ORDERED: FOLIC ACID 1 MG TAB PO ONE (20:21)
[2016-10-08] MEDS ORDERED: THIAMINE HCL 100 MG TAB PO ONE (20:21)
--- NOTE | 2016-10-08 20:21 | EDPHY ---
H & P Stated Complaint: "not steady " pain hips Time Seen by Provider: 10/08/16 20:12 HPI/ROS: CHIEF COMPLAINT: "I am withdrawing" HISTORY OF PRESENT ILLNESS: 60-year-old homeless male [facility] for acute alcohol withdrawal and was sent to the emergency department for acute alcohol withdrawal and for Librium. He is complaining of anxiety, tremor, nausea. He denies hallucination. Denies seizure. Last drink of alcohol was at 10:00 a.m. this morning. He denies: Abdominal pain, back pain, chest pain, dyspnea. REVIEW OF SYSTEMS: A ten point review of systems was performed and is negative with the exception of the items mentioned in the HPI PAST MEDICAL & SURGICAL HISTORY: Alcoholism SOCIAL HISTORY:homeless PHYSICAL EXAM (Prior to examination, patient consented to physical exam, hands were washed and my usual and customary physical exam procedures followed) 1) GENERAL: poorly kept, foul smelling, alert and oriented Appears to be in no acute distress. 2) HEAD: Normocephalic, atraumatic 3) HEENT: Sclera anicteric. 4) NECK: Full range of motion, no meningeal signs. 5) LUNGS: Clear auscultation bilaterally, no wheezes. 6) HEART: Regular rate and rhythm 7) ABDOMEN: No guarding, no rebound, no focal tenderness, 8) MUSCULOSKELETAL: Tremulous 9) BACK: no visual or palpable abnormality. 10) SKIN: No rash, no petechiae. 11) Psychiatric: Patient is oriented X 3, there is no agitation. DIFFERENTIAL DIAGNOSIS: in no particular include but limited to acute alcohol withdrawal, alcohol withdrawal seizure, delirium tremens - Personal History Current Tetanus/Diphtheria Vaccine: Yes Current Tetanus Diphtheria and Acellular Pertussis (TDAP): Yes - Medical/Surgical History Hx Asthma: No Hx Chronic Respiratory Disease: No Hx Diabetes: No Hx Cardiac Disease: No Hx Renal Disease: No Hx Cirrhosis: No Hx Alcoholism: Yes Hx HIV/AIDS: No Hx Splenectomy or Spleen Trauma: No Other PMH: ETOH. angioplasty. l hip surgery - Social History Smoking Status: Current every day smoker Constitutional: Initial Vital Signs Temperature (C) 36.8 C 10/08/16 19:50 Heart Rate 130 H 10/08/16 19:50 Respiratory Rate 18 10/08/16 19:50 Blood Pressure 112/68 10/08/16 19:50 O2 Sat (%) 97 10/08/16 19:50 O2 Delivery Mode Room Air Allergies/Adverse Reactions: No Known Allergies Allergy (Verified 09/24/16 02:40) Home Medications: Medication Instructions Recorded NK [No Known Home Meds] 09/16/16 Medical Decision Making ED Course/Re-evaluation: 8:45 p.m.: Patient re-evaluated, he has been given 2 mg of oral Ativan. Heart rate has decreased, tremor resolved. No hallucination. He is answering questions appropriately. Plan will be [facility] with Librium. Doubt delirium tremens.. - Data Points Medications Given: Discontinued Medications Folic Acid (Folic Acid) 1 mg PO EDNOW ONE Stop: 10/08/16 20:22 Last Admin: 10/08/16 20:36 Dose: 1 mg Lorazepam (Ativan) 2 mg PO EDNOW ONE Stop: 10/08/16 20:13 Last Admin: 10/08/16 20:22 Dose: 2 mg Thiamine HCl (Vitamin B-1) 100 mg PO EDNOW ONE Stop: 10/08/16 20:22 Last Admin: 10/08/16 20:36 Dose: 100 mg Departure - Departure Disposition: Home, Routine, Self-Care Clinical Impression: Alcohol withdrawal Qualifiers: Complication of substance-induced condition: uncomplicated Qualified Code(s): F10.230 - Alcohol dependence with withdrawal, uncomplicated Condition: Good Instructions: Chlordiazepoxide/Clidinium (By mouth), Alcohol Withdrawal (ED) Referrals: [facility] [Outside] - 1 day without fail
[2016-10-09 06:23] VITALS: BP 136/71; PULSE 101; RESP 16; O2SAT 96
== END 2016-10-08 21:05 | disposition home or self-care (01) ==
DX: F10.230 Alcohol dependence with withdrawal, uncomplicated (principal); F17.200 Nicotine dependence, unspecified, uncomplicated

== ENCOUNTER 2016-10-10 19:48 | Emergency (ER) | payer MEDICAID ==
--- NOTE | 2016-10-10 19:48 | EDPHY ---
H & P Time Seen by Provider: 10/10/16 19:48 HPI/ROS: CHIEF COMPLAINT: I am under a lot of stress HISTORY OF PRESENT ILLNESS: Per EMS the patient called because he was having difficulty walking as chronic back and extremity pain. The patient relates a long list of problems to me including feeling "tired because I am almost 61," " I have got nowhere to sleep because my brother and his girlfriend are always fighting in my house," and wanting to "just lie down in this bed for couple of hours." He has multiple complaints of chronic pain including his back and his legs and his hips and his neck but no new pain and no new trauma. Patient is a chronic cough which is unchanged from his tobacco smoking. Per EMS he was able to walk from the place he was picked up over the gurney. REVIEW OF SYSTEMS: Eye: no change in vision ENT: no sore throat Cardiac: no chest pain or syncope Pulmonary: Not short of breath Abdomen: no vomiting, diarrhea, abdominal pain Musculoskeletal: HPI Skin: no rash Neuro: no headache Constitutional: no fever : no urinary symptoms A comprehensive 10 point review of systems is otherwise negative aside from elements mentioned in the history of present illness. PAST MEDICAL HISTORY: Emergency department visit dated 10/03/2016 personally reviewed includes left foot fracture, COPD, hypertension, rib fractures, bilateral knee and left hip surgery. Tonsillectomy. Left foot fracture on x- ray 09/17/2016. Remote history of Coronary disease per Dr. Alejo's consult note. Social history: Frequent and recent alcohol, tobacco smoker General Appearance: Alert and conversant, cooperative. Eyes: No scleral icterus. ENT, Mouth: Normal mucous membranes. Nasal abrasion. Respiratory: Normal respiratory effort, breath sounds equal, lungs are clear to auscultation. Speaks in full sentences. Cardiovascular: Regular rate and rhythm. Gastrointestinal: Abdomen is soft and non tender. Neurological: Alert and oriented x3. Normally conversant. Face symmetric, normal movement and sensation in all extremities. Ambulatory with cane today in ED at baseline status. Not tremulous. Toes downgoing bilaterally. No clonus. Ankle reflexes 1+ bilaterally, patellar reflexes minimal which the patient says is usual for him. Skin: Warm and dry, no rashes. Musculoskeletal: No peripheral edema and no joint swelling. No extremity or cervical thoracic or lumbar spine tenderness. Psychiatric: Not agitated. Emergency Department course/MDM: Patient presents with acute alcohol intoxication, and multiple medical complaints none of which appear to be acute. I do not think he appears to have an acute medical or surgical emergency. He admits to alcohol today but clinically has the ability to have a reasonable conversation and is ambulatory and stable for discharge. He wants to leave. Constitutional: Initial Vital Signs Temperature (C) 36.7 C 10/10/16 19:50 Heart Rate 80 10/10/16 19:50 Respiratory Rate 18 10/10/16 19:50 Blood Pressure 112/68 10/10/16 19:50 O2 Sat (%) 95 10/10/16 19:50 O2 Delivery Mode Room Air Allergies/Adverse Reactions: No Known Allergies Allergy (Verified 10/10/16 19:53) Home Medications: Medication Instructions Recorded NK [No Known Home Meds] 09/16/16 Departure - Departure Disposition: Home, Routine, Self-Care Clinical Impression: Alcohol intoxication Qualifiers: Complication of substance-induced condition: uncomplicated Qualified Code(s): F10.120 - Alcohol abuse with intoxication, uncomplicated Condition: Good Instructions: Alcohol Intoxication (ED) Referrals: [facility],. [Clinic] - As per Instructions
[2016-10-10 19:53] VITALS: BP 112/68; PULSE 80; RESP 18; TEMP 98.1; O2SAT 95
== END 2016-10-10 20:10 | disposition home or self-care (01) ==
LOC: EDUNIT# → CED 19:48
DX: F10.120 Alcohol abuse with intoxication, uncomplicated (principal); J44.9 Chronic obstructive pulmonary disease, unspecified; I10 Essential (primary) hypertension; F17.200 Nicotine dependence, unspecified, uncomplicated

== ENCOUNTER 2016-10-14 17:24 | Emergency (ER) | payer MEDICAID ==
--- NOTE | 2016-10-14 17:35 | EDPHY ---
H & P Smoking Status: Current every day smoker HPI/ROS: HPI Alcohol intoxication. 60-year-old male by ambulance with complaint of alcohol intoxication. Patient is very familiar to our emergency department. Patient has been here twice for the same complaint in the last 1-2 weeks. Patient found by bystanders, [place] EMS called, patient unable to ambulate so EMS brought the patient to our facility. Patient reports that he drank a couple of pt of whiskey today. Reports he only wants to sleep. He is requesting discharge to his home. He apparently has apartment or house near by this facility. He denies any other complaints. There is no history of trauma. ROS: Constitutional: No fever, no chills. No weakness. Eyes: No discharge. No changes in vision. ENT: No sore throat. No nasal congestion or rhinorrhea. Respiratory: No cough. No shortness of breath. Cardiac: No chest pain, no palpitations. Gastrointestinal: No abdominal pain, no vomiting, no diarrhea. Genitourinary: No hematuria. No dysuria or increased frequency with urination. Musculoskeletal: No back pain. No neck pain. No myalgias or arthralgias. Skin: No rashes. Neurological: No headache. No focal weakness or altered sensation. Past medical history: COPD, hypertension, rib fractures, orthopedic injuries, bilateral knee surgeries and left ankle surgeries. Chronic alcohol abuse, remote history of coronary artery disease. Social history: Tobacco smoker, long history of alcohol abuse. Physical Exam: General Appearance: Alert, intoxicated with strong odor of alcohol on his breath. This patient is responding to questions appropriately and in full sentences albeit was slurred speech. This patient appears generally well- hydrated and well-nourished. Eyes: Pupils equal and round no pallor or injection. No lid edema, erythema or injection. Head: Normocephalic atraumatic Respiratory: There are no retractions, lungs are clear to auscultation with good air movement bilaterally. Cardiovascular: Regular rate and rhythm. No murmur. Gastrointestinal: Abdomen is soft and nontender, no masses, bowel sounds normal. No focal tenderness at McBurney's point. No Lin sign. Neurological: Motor sensory function is grossly intact. Cranial nerves are normal. Skin: Warm and dry, no rashes. No lacerations or abrasions. Musculoskeletal: Neck is supple and nontender. Extremities are symmetrical. All joints range without pain or impingement. Psychiatric: No agitation. No depression. Database: EKG: Imaging: Procedures: Emergency department course: Patient placed on a monitor. He is not welcome at the [facility]. Plan will be to observe him in the emergency department while he nancy and then discharge him to home when appropriate. We have watch this patient closely throughout my shift. He has now been here for 5 hours. He is still too intoxicated to ambulate on his own. Care turned over to Dr. Ragsdale at 11:00 p.m.. Expected disposition is discharged to home when sober. Differential Diagnosis: The differential diagnosis on this patient includes but is not limited to alcohol intoxication, alcohol abuse. Traumatic brain injury, other significant traumatic injury unlikely. This represents a partial list of diagnoses considered. These considerations are based on history, physical exam, past history, reassessment and diagnostic testing. (Rivas Bryan) Constitutional: Initial Vital Signs Temperature (C) 98.2 F 10/14/16 17:24 Heart Rate 98 10/14/16 17:24 Respiratory Rate 20 10/14/16 17:24 Blood Pressure 100/60 10/14/16 17:24 O2 Sat (%) 92 10/14/16 17:24 O2 Delivery Mode Room Air O2 (L/minute) 2 Allergies/Adverse Reactions: No Known Allergies Allergy (Verified 10/14/16 17:27) Home Medications: Medication Instructions Recorded NK [No Known Home Meds] 09/16/16 Medical Decision Making ED Course/Re-evaluation: Patient clinically sober, steady gate, given juice and discharged from the ED at 0012. (Vickie Ragsdale) Departure - Departure Disposition: Home, Routine, Self-Care Clinical Impression: Alcohol intoxication Condition: Good Instructions: Abuse of Alcohol (ED) Additional Instructions: Read and follow provided instructions. Do not abuse alcohol. Return to the emergency department for any serious concerns. Referrals: Patient,NotPresent [Primary Care Provider] - As per Instructions
[2016-10-14 22:40] VITALS: BP 133/82; RESP 16; TEMP 97.2
[2016-10-15 00:12] VITALS: PULSE 84; O2SAT 92
== END 2016-10-15 00:12 | disposition home or self-care (01) ==
LOC: EDUNIT# → CED 17:24
DX: F10.129 Alcohol abuse with intoxication, unspecified (principal); J44.9 Chronic obstructive pulmonary disease, unspecified; I10 Essential (primary) hypertension; F17.200 Nicotine dependence, unspecified, uncomplicated; I25.10 Atherosclerotic heart disease of native coronary artery without angina pectoris